=== PATIENT | female | born 1965 | race Caucasian/White ===

== ENCOUNTER 2017-12-18 23:13 | Emergency (ER) | payer OTHER ==
[~2017-12-18 23:13] MED LIST: ALB17R INH; FLU44R IH; FLUT1DIS28 IH; IPRA3AMP36 IH; KET10 PO; LEV125 PO; LEV500 PO; LEVO150T72 PO; LOR5/325 PO; MONT10TA22 PO; PRE20 PO
--- NOTE | 2017-12-18 23:31 | ER Report ---
History and Physical Time Seen By MD: 23:31 HPI/ROS CHIEF COMPLAINT: heart palpitations. HISTORY OF PRESENT ILLNESS: This is a 52 year old female. She started having a racing heart beat about 2 hours ago. Waited to see if it would stop. She denies any chest pain or shortness of breath. Has had this happen once in the past, but went away. No cough or fevers. Had been feeling well previous to this. No history of heart problems previously. REVIEW OF SYSTEMS: No problems with urination. No problem with bowels. No nausea or vomiting. Allergies: Uncoded Allergies: HAYFEVER (Allergy, Unknown, UNKNOWN, 10/16/11) Home Meds Active Scripts Metoprolol Tartrate (METOPROLOL TARTRATE) 25 Mg Tablet, 1 TAB PO BID, #60 TAB 0 Refills Prov:CHANO LEMON MD 12/19/17 Reported Medications Metformin HCl (Metformin HCl ER) 500 Mg [id number], 1 TAB PO QDAY 12/18/17 Oxybutynin Chloride (OXYBUTYNIN CHLORIDE) 5 Mg Tablet, 10 MG PO QDAY, TAB 12/18/17 Levothyroxine Sodium (Synthroid) 150 Mcg Tablet, 150 MCG PO QDAY, 0 Refills 04/25/09 Fluticasone Propionate (Flovent) 13 Gm Aer.w.adap, 13 GM IH, 0 Refills 04/25/09 Montelukast Sodium (Singulair) 10 Mg Tablet, 10 MG PO QDAY, 0 Refills 04/25/09 Discontinued Reported Medications Ketorolac Tromethamine (Toradol) 10 Mg Tab, 10 MG PO Q6H, #10 0 Refills 04/26/09 Acetaminophen/Hydrocodone (Lortab 5/325 Mg) 5 Mg/325 Mg Tab, 1 - 2 TAB PO Q4H Y , #30 0 Refills 04/26/09 Albuterol (Proventil Inhaler) 17 Gm Inh, 1 PUFF INH Q6H Y, 0 Refills 1 PUFF 04/25/09 Fluticasone/Salmeterol (Advair 250-50 Diskus) 1 Disk W/Dev Disk.w.dev, 1 DISK IH, 0 Refills 04/25/09 Reviewed Nurses Notes: Yes Constitutional Vital Sign - Last 24 Hours 8/1512/18/17 12/18/17 12/18/17 23:20 23:28 23:30 23:40 Temp 97.2 Pulse 172 173 Resp 26 16 B/P (MAP) 133/108 133/103 (113) 143/105 (118) Pulse Ox 91 93 O2 Delivery Room Air 12/18/17 12/18/17 12/19/17 12/19/17 23:43 23:58 00:08 00:13 Pulse 121 118 117 Resp 33 20 B/P (MAP) 143/93 (110) Pulse Ox 90 88 89 12/19/17 12/19/17 12/19/17 12/19/17 00:28 00:30 00:38 00:43 Pulse 118 114 Resp 17 8 B/P (MAP) 135/102 (113) 129/93 (105) Pulse Ox 89 91 12/19/17 12/19/17 12/19/17 12/19/17 00:58 01:00 01:20 01:30 Pulse 111 104 Resp 7 13 B/P (MAP) 126/87 (100) 128/86 (100) Pulse Ox 92 92 12/19/17 01:35 Pulse 100 Resp 26 Pulse Ox 93 Physical Exam General Appearance: The patient is alert. No acute distress. Non-toxic in appearance. Eyes: Pupils are equal, round. No pallor, injection or icterus. ENT: Mucous membranes are moist. Respiratory: Lungs are clear to auscultation. Cardiovascular: Tachycardia and regular. No murmurs, gallops or rubs. Normal capillary refill. Gastrointestinal: Abdomen is soft and non tender. Neurological: Alert and oriented x3. Skin: Warm and dry. DIFFERENTIAL DIAGNOSIS: After history and physical exam, differential diagnosis was considered for SVT Medical Decision Making Data Points Result Diagram: 12/18/17232612/18/172326 Laboratory Hematology Test 12/18/17 23:27 Red Blood Count 5.29 M/uL (4.17-5.56) Mean Corpuscular Volume 87.6 fL (80.0-96.0) Mean Corpuscular Hemoglobin 30.8 pg (26.0-33.0) Mean Corpuscular Hemoglobin Concent 35.1 g/dL (32.0-36.0) Red Cell Distribution Width 13.6 % (11.5-14.5) Mean Platelet Volume 7.1 fL (7.2-11.1) Neutrophils (%) (Auto) 56.4 % (39.4-72.5) Lymphocytes (%) (Auto) 34.2 % (17.6-49.6) Monocytes (%) (Auto) 7.4 % (4.1-12.4) Eosinophils (%) (Auto) 1.6 % (0.4-6.7) Basophils (%) (Auto) 0.4 % (0.3-1.4) Nucleated RBC Relative Count (auto) 0.1 /100WBC Neutrophils # (Auto) 5.7 K/uL (2.0-7.4) Lymphocytes # (Auto) 3.4 K/uL (1.3-3.6) Monocytes # (Auto) 0.7 K/uL (0.3-1.0) Eosinophils # (Auto) 0.2 K/uL (0.0-0.5) Basophils # (Auto) 0.0 K/uL (0.0-0.1) Nucleated RBC Absolute Count (auto) 0.01 K/uL Sodium Level 139 mmol/L (137-145) Potassium Level 3.1 mmol/L (3.5-5.0) Chloride Level 98 mmol/L (98-107) Carbon Dioxide Level 27 mmol/L (22-31) Blood Urea Nitrogen 18 mg/dl (7-18) Creatinine 0.80 mg/dl (0.52-1.04) Glomerular Filtration Rate Calc > 60.0 Random Glucose 133 mg/dl (75-110) Calcium Level 8.8 mg/dl (8.4-10.2) Magnesium Level 1.9 mg/dl (1.7-2.2) Total Bilirubin 0.8 mg/dl (0.2-1.3) Aspartate Amino Transf (AST/SGOT) 30 U/L (0-35) Alanine Aminotransferase (ALT/SGPT) 35 U/L (0-56) Alkaline Phosphatase 108 U/L (0-126) Troponin I < 0.012 ng/ml Total Protein 7.5 g/dl (6.3-8.2) Albumin 4.5 g/dl (3.5-5.0) Chemistry Test 12/18/17 23:27 White Blood Count 10.0 k/uL (4.5-11.0) Red Blood Count 5.29 M/uL (4.17-5.56) Hemoglobin 16.3 g/dL (12.0-16.0) Hematocrit 46.4 % (34.0-47.0) Mean Corpuscular Volume 87.6 fL (80.0-96.0) Mean Corpuscular Hemoglobin 30.8 pg (26.0-33.0) Mean Corpuscular Hemoglobin Concent 35.1 g/dL (32.0-36.0) Red Cell Distribution Width 13.6 % (11.5-14.5) Platelet Count 364 K/uL (150-450) Mean Platelet Volume 7.1 fL (7.2-11.1) Neutrophils (%) (Auto) 56.4 % (39.4-72.5) Lymphocytes (%) (Auto) 34.2 % (17.6-49.6) Monocytes (%) (Auto) 7.4 % (4.1-12.4) Eosinophils (%) (Auto) 1.6 % (0.4-6.7) Basophils (%) (Auto) 0.4 % (0.3-1.4) Nucleated RBC Relative Count (auto) 0.1 /100WBC Neutrophils # (Auto) 5.7 K/uL (2.0-7.4) Lymphocytes # (Auto) 3.4 K/uL (1.3-3.6) Monocytes # (Auto) 0.7 K/uL (0.3-1.0) Eosinophils # (Auto) 0.2 K/uL (0.0-0.5) Basophils # (Auto) 0.0 K/uL (0.0-0.1) Nucleated RBC Absolute Count (auto) 0.01 K/uL Glomerular Filtration Rate Calc > 60.0 Calcium Level 8.8 mg/dl (8.4-10.2) Magnesium Level 1.9 mg/dl (1.7-2.2) Total Bilirubin 0.8 mg/dl (0.2-1.3) Aspartate Amino Transf (AST/SGOT) 30 U/L (0-35) Alanine Aminotransferase (ALT/SGPT) 35 U/L (0-56) Alkaline Phosphatase 108 U/L (0-126) Troponin I < 0.012 ng/ml Total Protein 7.5 g/dl (6.3-8.2) Albumin 4.5 g/dl (3.5-5.0) EKG/Imaging EKG Interpretation 12 lead EKG: Rhythm: Supraventricular tachycardia, rate 170 12 lead EKG: Rhythm: Immediately after adenosine 6 mg, rhythm went to a sinus tachycardia with a rate of 117 QRS: normal ST segments: Nonspecific without ST elevation or depression 12 lead EKG: Rhythm: After observing in the ER, sinus tachycardia, rate 102 [place]: normal Otherwise unchanged Imaging CHEST PA AND LAT HISTORY: Supraventricular tachycardia. COMPARISON: 06/22/2014 and studies dating to 01/22/2008. TECHNIQUE: PA and lateral views of the chest. FINDINGS: Pulmonary: Stable mild prominence to the interstitium. There is no pneumothorax or pleural effusion. Cardiomediastinal: Cardiac and mediastinal silhouettes are within normal limits. Bones/soft tissues: No acute osseous abnormality. The visible abdomen is normal. IMPRESSION: 1. Stable chest without acute process. Report Dictated By: Tiffanie Greenberg at 12/19/2017 12:25 AM ED Course/Re-evaluation Clinical Indication for ER IV: Hydration, IV Access ED Course Converted supraventricular tachycardia with 6 mg of IV adenosine push. Stayed in a sinus rhythm although still slightly tachycardic. Gave metoprolol 25 mg which she will use twice a day until she sees cardiology. Labs otherwise negative except for mild decrease in potassium which I discussed with the patient. Troponin negative. Decision to Disposition Date: Dec 19, 2017 Decision to Disposition Time: 01:23 Depart Departure Latest Vital Signs Vital Signs Date Time Temp Pulse Resp B/P (MAP) Pulse Ox O2 Delivery O2 Flow Rate FiO2 12/19/17 01:35 100 26 93 12/19/17 01:30 128/86 (100) 12/18/17 23:20 97.2 Room Air Impression: Primary Impression: Supraventricular tachycardia Condition: Improved Disposition: HOME OR SELF-CARE Referrals: ABEL DONALDSON (PCP) New Scripts Metoprolol Tartrate (METOPROLOL TARTRATE) 25 Mg Tablet 1 TAB PO BID, #60 TAB 0 Refills Prov: CHANO LEMON MD 12/19/17 Patient Instructions: Supraventricular Tachycardia (ED) Additional Instructions: Take the medicine Metoprolol 25mg twice a day. This is a medicine that helps to slow the heart rate down and lower blood pressure. Call and arrange a follow-up visit with cardiology for further evaluation. CHANO LEMON MD Dec 18, 2017 23:31
[2017-12-18] MEDS ORDERED: OXYB5TAB86 PO (23:32)
[2017-12-18] MEDS ORDERED: ADENOSINE(*)IV SOLN 3MG/ML ONE (23:35)
[2017-12-18] MEDS ORDERED: METF-51 PO (23:39)
[2017-12-18 23:57] LABS: PLATELET COUNT, AUTOMATED 364 K/uL (150-450)
--- NOTE | 2017-12-19 00:26 | EKG ---
FACILITY: [facility] [place] PATIENT NAME: WALTER GREEN : [id number] MR: [id number] V: [id number] EXAM DATE: ORDERING PHYSICIAN: CHANO LEMON TECHNOLOGIST: Test Reason : palpitations Blood Pressure : / mmHG Vent. Rate : 170 BPM Atrial Rate : 166 BPM P-R Int : 000 ms QRS Dur : 090 ms QT Int : 286 ms P-R-T Axes : 000 005 107 degrees QTc Int : 480 ms Supraventricular tachycardia Marked ST abnormality, possible inferior subendocardial injury Abnormal ECG When compared with ECG of 23-APR-2014 08:52, Vent. rate has increased BY 82 BPM Nonspecific T wave abnormality no longer evident in Lateral leads Confirmed by ALFREDITO HARDING ([id number]) on 12/19/2017 6:25:30 AM Referred By: Confirmed By:ALFREDITO HARDING
--- NOTE | 2017-12-19 00:26 | EKG ---
FACILITY: [facility] PATIENT NAME: WALTER GREEN : [id number] MR: [id number] V: [id number] EXAM DATE: ORDERING PHYSICIAN: CHANO LEMON TECHNOLOGIST: Test Reason : palpitations Blood Pressure : / mmHG Vent. Rate : 117 BPM Atrial Rate : 117 BPM P-R Int : 164 ms QRS Dur : 098 ms QT Int : 336 ms P-R-T Axes : 049 -16 066 degrees QTc Int : 468 ms Sinus tachycardia Possible Left atrial enlargement Borderline ECG When compared with ECG of 18-DEC-2017 23:28, No significant change was found Confirmed by ALFREDITO HADRING ([id number]) on 12/19/2017 6:25:38 AM Referred By: Confirmed By:ALFREDITO HARDING
--- NOTE | 2017-12-19 00:31 | RADIOLOGY IMAGING REPORT ---
FACILITY: [facility] PATIENT NAME: Jasmina Mendoza : 1965 MR: [id number] V: [id number] EXAM DATE: ORDERING PHYSICIAN: CHANO LEMON TECHNOLOGIST: Location: [facility] [place] Patient: Jasmina Mendoza : 1965 Visit/Account:[id number] Date of Sevice: 12/18/2017 CHEST PA AND LAT HISTORY: Supraventricular tachycardia. COMPARISON: 06/22/2014 and studies dating to 01/22/2008. TECHNIQUE: PA and lateral views of the chest. FINDINGS: Pulmonary: Stable mild prominence to the interstitium. There is no pneumothorax or pleural effusion. Cardiomediastinal: Cardiac and mediastinal silhouettes are within normal limits. Bones/soft tissues: No acute osseous abnormality. The visible abdomen is normal. IMPRESSION: 1. Stable chest without acute process. Report Dictated By: Tiffanie Greenberg at 12/19/2017 12:25 AM Report E-Signed By: Tiffanie Greenberg at 12/19/2017 12:27 AM WSN:[id number]
[2017-12-19] MEDS ORDERED: METOPROLOL TART 50 MG TAB PO ONE (00:45)
[2017-12-19 01:30] VITALS: BP 128/86
[2017-12-19] MEDS ORDERED: NS(*) 0.9% 1000 ML BAG 1,000 ML IV ONE (01:40)
--- NOTE | 2017-12-19 01:42 | EKG ---
FACILITY: [facility] PATIENT NAME: WALTER GREEN : [id number] MR: [id number] V: [id number] EXAM DATE: ORDERING PHYSICIAN: CHANO LEMON TECHNOLOGIST: Test Reason : palpitations Blood Pressure : / mmHG Vent. Rate : 102 BPM Atrial Rate : 102 BPM P-R Int : 190 ms QRS Dur : 098 ms QT Int : 388 ms P-R-T Axes : 058 -04 066 degrees QTc Int : 505 ms Sinus tachycardia Otherwise normal ECG When compared with ECG of 18-DEC-2017 23:41, No significant change was found Confirmed by ALFREDITO HARDING ([id number]) on 12/19/2017 6:26:06 AM Referred By: Confirmed By:ALFREDITO HARDING
[2017-12-19] MEDS ORDERED: METO25TA93 PO (01:43)
== END 2017-12-19 01:52 | disposition home or self-care (01) ==
LOC: ER 23:37
DX: I47.1 Supraventricular tachycardia (principal)
CPT/HCPCS: 71046; 83735; 84484; 85025; 93005; 96360; 99284; J0153; J7030; 82040; 82247; 82310; 82374; 82435; 82565; 82947; 84075; 84132; 84155; 84295; 84450; 84460; 84520

== ENCOUNTER → 2018-03-06 | Outpatient (CLI) | payer OTHER ==
[~2018-03-06] MED LIST changes: +METF-51 PO; +METO25TA93 PO; +OXYB5TAB86 PO
== END ==
LOC: US 02-18 00:31
PROVIDERS: ATTEND Internal Medicine
DX: I51.7 Cardiomegaly (principal)
CPT/HCPCS: 93306

== ENCOUNTER → 2018-11-17 | Outpatient (CLI) | payer OTHER | LOC: RESP 01:36 | PROVIDERS: ATTEND Nurse Practitioner Family | DX: J45.40 Moderate persistent asthma, uncomplicated (principal) | CPT/HCPCS: 94060; 94726; 94729 ==